=== PATIENT | female | born 1975 | race Caucasian/White ===

== ENCOUNTER 2017-07-20 19:50 | Emergency (ER) | payer MEDICAID ==
[~2017-07-20] VITALS: Ht 165.1 cm; Wt 70.0 kg
[2017-07-20 20:00] VITALS: Ht 165.1 cm; Wt 70.0 kg
--- NOTE | 2017-07-20 20:49 | ERD ---
ER Documentation Chief Complaint Date/Time DATE: 07/20/17 TIME: 20:47 Chief Complaint RLQ pain x 7 days. +nausea. -v/d. urinary symptoms HPI 42-year-old female presents here in emergency department for complaint of right lower quadrant, right pelvic pain for 7 days now. Patient described pain as sharp pain, 6/10 scale, not better or worse with anything. Patient complaining of nausea but denies any vomiting diarrhea or constipation. Patient denies any fever or chills. Patient denies being . Patient denies any hematuria or dysuria. Patient denies any flank pain. She did not take any medications for pain. ROS All systems reviewed and are negative except as per history of present illness. Medications Home Meds Active Scripts Ondansetron (Ondansetron Odt) 4 Mg Tab.rapdis, 4 MG PO Q8 Y for NAUSEA AND/OR VOMITING, #30 TAB Prov:LESLY CRAMER NP 07/20/17 Hydrocodone/Acetaminophen ([place] 5-325 Tablet) 1 Each Tablet, 1 TAB PO Q6H Y for PAIN, #20 TAB Prov:LESLY CRAMER [employer] 07/20/17 Reported Medications [none] Unknown Strength No Conflict Check 07/20/17 Allergies Allergies: Coded Allergies: No Known Allergy (Unverified , 07/20/17) PMhx/Soc Medical and Surgical Hx: pt denies Medical Hx, pt denies Surgical Hx Anesthesia Reaction: No Hx Neurological Disorder: No Hx Respiratory Disorders: No Hx Cardiac Disorders: No Hx Psychiatric Problems: No Hx Miscellaneous Medical Probl: No Hx Alcohol Use: No Hx Substance Use: No Hx Tobacco Use: No Smoking Status: Never smoker FmHx Family History: No coronary disease, No diabetes, No other Physical Exam Vitals Vital Signs Date Time Temp Pulse Resp B/P Pulse Ox O2 Delivery O2 Flow Rate FiO2 07/21/17 00:17 97.8 66 18 109/67 99 Room Air 07/20/17 20:00 98.8 86 18 111/73 97 Physical Exam GENERAL: The patient is well developed and appropriate for usual state of health, in no apparent distress. CHEST: Clear to auscultation bilaterally. There are no rales, wheezes or rhonchi. HEART: Regular rate and rhythm. No murmurs, clicks, rubs or gallops. No S3 or S4. ABDOMEN: Soft, right lower quadrant tenderness noted. Good bowel sounds. No rebound or guarding. No gross peritonitis. No gross organomegaly or masses. No Sanchez sign. BACK: No midline or flank tenderness. EXTREMITIES: Equal pulses bilaterally. There is no peripheral clubbing, cyanosis or edema. No focal swelling or erythema. Full range of motion. Grossly neurovascularly intact. NEURO: Alert and oriented. Cranial nerves 2-12 intact. Motor strength in all 4 extremities with 5/5 strength. Sensation grossly intact. Normal speech and gait. SKIN: There is no apparent rash or petechia. The skin is warm and dry. HEMATOLOGIC AND LYMPHATIC: There is no evidence of excessive bruising or lymphedema. No gross cervical, axillary, or inguinal lymphadenopathy. Result Diagram: 07/20/17205407/20/172054 Results 24 hrs Laboratory Tests Test 07/20/17 20:55 07/21/17 00:05 White Blood Count 7.210^3/ul Red Blood Count 4.6110^6/ul Hemoglobin 13.8g/dl Hematocrit 40.4% Mean Corpuscular Volume 87.6fl Mean Corpuscular Hemoglobin 29.9pg Mean Corpuscular Hemoglobin Concent 34.2g/dl Red Cell Distribution Width 12.2% Platelet Count 57617^3/UL Mean Platelet Volume 11.0fl Neutrophils % 59.0% Lymphocytes % 32.1% Monocytes % 7.0% Eosinophils % 1.1% Basophils % 0.4% Nucleated Red Blood Cells % 0.0/100WBC Neutrophils # (Manual) 410^3/ul Lymphocytes # 2.310^3/ul Monocytes # 0.510^3/ul Eosinophils # 0.110^3/ul Basophils # 0.010^3/ul Nucleated Red Blood Cells # 0.010^3/ul Urine Color STRAW Urine Clarity CLEAR Urine pH 7.0 Urine Specific [place] 1.035 Urine Ketones TRACEmg/dL Urine Nitrite NEGATIVEmg/dL Urine Bilirubin NEGATIVEmg/dL Urine Urobilinogen NEGATIVEmg/dL Urine Leukocyte Esterase NEGATIVELeu/ul Urine Hemoglobin NEGATIVEmg/dL Urine Glucose 3+mg/dL Urine Total Protein NEGATIVEmg/dl Sodium Level 139mmol/L Potassium Level 4.1mmol/L Chloride Level 99mmol/L Carbon Dioxide Level 25mmol/L Anion Gap 19 Blood Urea Nitrogen 19mg/dl Creatinine 0.44mg/dl Glucose Level 421mg/dl Calcium Level 9.9mg/dl Total Bilirubin 0.1mg/dl Direct Bilirubin 0.00mg/dl Indirect Bilirubin 0.1mg/dl Aspartate Amino Transf (AST/SGOT) 19IU/L Alanine Aminotransferase (ALT/SGPT) 37IU/L Alkaline Phosphatase 122IU/L Total Protein 7.3g/dl Albumin 4.4g/dl Globulin 2.90g/dl Albumin/Globulin Ratio 1.51 Lipase 135U/L Bedside Glucose 255mg/dL Current Medications Medications (Trade) Dose Ordered Sig/Porsha Route PRN Reason Start Time Stop Time Status Last Admin Dose Admin Sodium Chloride (NS) 1,000 ml @ 1,000 mls/hr Q1H ONCE IV 07/20/17 22:30 07/20/17 23:29 DC 07/20/17 23:02 Insulin Aspart (Novolog Insulin Pen) 10 unit ONCE ONCE SC 07/20/17 22:30 07/20/17 22:42 DC 07/20/17 23:13 IV fluids and insulin was given here in emergency department to control blood sugar, does not show any symptoms of diabetic ketoacidosis. PROCEDURE: CT abdomen and pelvis without contrast. CLINICAL INDICATION: Abdominal pain TECHNIQUE: CT scan of the abdomen and pelvis without contrast was performed. Sagittal and coronal reformatted images were obtained from the axial source images. CTDI = 9.61 mGy; DLP = 514.95 mGy-cm COMPARISON: Pelvic ultrasound 07/20/2017 FINDINGS: Visualized lower thorax: The lung bases are clear. There is no evidence for pleural effusion. Partially visualized breast implants are noted Liver, gallbladder, pancreas and spleen: The liver is normal and size, contour and attenuation. There is no evidence for a liver mass or ductal dilatation. The gallbladder is unremarkable. No common bile duct abnormality is demonstrated. The pancreas is unremarkable. The spleen is normal in size. Adrenal glands and genitourinary system: The adrenal glands are normal bilaterally. The kidneys are normal and size, contour and attenuation with no evidence for masses, calculi or hydronephrosis. The ureters are unremarkable. No urinary bladder abnormality is demonstrated. The uterus and adnexa are unremarkable. There is no evidence of free fluid in the cul-de-sac. Gastrointestinal system: The stomach is normal in caliber with no abnormality of significance. The small bowel is normal in caliber with no ileus, obstruction or wall thickening. The appendix and surrounding fat are within the limits of normal. The colon shows no evidence for wall thickening or acute abnormality. There is no evidence for colitis or diverticulitis. Peritoneum, retroperitoneum, lymph nodes and vessels: The abdominal aorta is normal in caliber. There is no evidence for atherosclerotic calcification. The inferior vena cava is unremarkable. There is no evidence for adenopathy or mass. There is no ascites. No pneumoperitoneum is visualized Osseous structures and musculoskeletal findings: There is no fracture, lytic or blastic lesion. No muscular abnormality or soft tissue pathology is present. RPTAT:HJJR IMPRESSION: Unremarkable CT scan of the abdomen and pelvis without contrast without findings to explain the patient's provided history. Physician Britt Date Time Electronically viewed and signed by Harjinder Rios Physician on 07/20/2017 22:29 JR/ CC: LESLY CRAMER NP AMENDMENT: 07/20/2017 10:30:11 PM Cleveland Molina M.D Endometrium: 2.4 mm. PROCEDURE: US Pelvis CLINICAL INDICATION: Pelvic pain. TECHNIQUE: Gomez scale and color Doppler imaging of the pelvis was performed. COMPARISON: CT dated 07/20/2017. FINDINGS: Uterus: 6.2 x 3.0 x 4.4 cm. Homogeneous in echogenicity with no mass lesion. Anteverted and normal in position. Endometrium: mm. Right ovary: Not visualized. Left ovary: 2.2 x 1.0 x 1.6 cm. Normal in echogenicity. Flow is present. Adnexa: No masses. Free fluid: None. IMPRESSION: 1. Unremarkable ultrasound of the pelvis. 2. Nonvisualization of the right ovary. RPTAT: HLBP .Cleveland Molina MD, MD Date Time Electronically viewed and signed by .Cleveland Molina MD, MD on 07/20/2017 22:30 .P/ CC: LESLY CRAMER NP Procedures/MDM Medical Decision Making: Patient's symptoms of abdominal pain nonspecific at this time, may be viral in origin. Patient has elevated blood sugar but has no symptoms of diabetic ketoacidosis. There is low suspicion for abdominal emergencies at this time. Patients abdominal exam is normal at this time. Patients radiology exams does not show any abdominal emergencies at this time. Leukocytosis, no bandemia. The right ovary was not seen but is low suspicion for ovarian torsion. Patient's pain is controlled There is low suspicion for appendicitis, cholecystitis, abdominal aortic aneurysms or peritonitis at this time. There is low suspicion for sepsis. Patient appears well and is hemodynamically stable. Patient's diabetic symptoms have stabilized here in the emergency department and appear appropriate for outpatient management. No evidence at this time of diabetic ketoacidosis, hyperosmolar syndrome, or severe systemic infection. Disposition: Home. Condition: Stable Prescription [place], ibuprofen Instructions: Patient is advised to take medications as prescribed. Patient is advised to rest, increase fluid intake and do brat diet for next 1-2 days and progress as tolerated. Patient is advised that if symptoms are worse, severe abdominal pain, uncontrolled vomiting, high fever, severe flank pain, worst signs and symptoms, to return to the emergency department immediately. Otherwise, patient can follow up with primary care doctor in 5-7 days. Departure Diagnosis: Primary Impression: Abdominal pain Abdominal location: right lower quadrant Qualified Code: R10.31 - Right lower quadrant abdominal pain Additional Impression: Hyperglycemia Condition: Stable Patient Instructions: Abdominal Pain, Hyperglycemia (High Blood Sugar) Additional Instructions: Patient is advised to take medications as prescribed. Patient is advised to rest , increase fluid intake and do brat diet for next 1-2 days and progress as tolerated. Patient is advised that if symptoms are worse, severe abdominal pain , uncontrolled vomiting, high fever, severe flank pain, worst signs and symptoms , to return to the emergency department immediately. Otherwise, patient can follow up with primary care doctor in 5-7 days. LESLY CRAMER NP Jul 20, 2017 20:49
[2017-07-20 21:47] LABS: BASOPHILS % 0.4 % (0.0-2.0); EOSINOPHILS # 0.1 10^3/ul (0.0-0.5); EOSINOPHILS % 1.1 % (0.0-7.0); HEMATOCRIT 40.4 % (37.0-47.0); HEMOGLOBIN 13.8 g/dl (12.0-16.0); LYMPHOCYTES # 2.3 10^3/ul (0.8-2.9); LYMPHOCYTES % 32.1 % (15.0-51.0); MEAN CORPUSCULAR HEMOGLOBIN 29.9 pg (29.0-33.0); MEAN CORPUSCULAR HGB CONC 34.2 g/dl (32.0-37.0); MEAN CORPUSCULAR VOLUME 87.6 fl (82.0-101.0); MONOCYTE # 0.5 10^3/ul (0.3-0.9); PLATELET COUNT 243 10^3/UL (140-415); RED BLOOD COUNT 4.61 10^6/ul (4.20-5.40); RED CELL DISTRIBUTION WIDTH 12.2 % (11.5-14.5); WHITE BLOOD COUNT 7.2 10^3/ul (4.8-10.8)
[2017-07-20 21:53] LABS: ADD UMIC NO; UR ASCORBIC ACID NEGATIVE (NEGATIVE); UR BILIRUBIN (Dip) NEGATIVE (NEGATIVE); UR BLOOD (Dip) NEGATIVE (NEGATIVE); UR CLARITY CLEAR (CLEAR); UR COLOR STRAW (YELLOW); UR GLUCOSE (Dip) 3+ mg/dL (NEGATIVE); UR KETONES (Dip) TRACE mg/dL (NEGATIVE); UR LEUKOCYTE ESTERASE (Dip) NEGATIVE Leu/ul (NEGATIVE); UR NITRITE (Dip) NEGATIVE (NEGATIVE); UR SPECIFIC GRAVITY (Dip) 1.035 (1.003-1.030); UR TOTAL PROTEIN (Dip) NEGATIVE (NEGATIVE); UR UROBILINOGEN (Dip) NEGATIVE (NEGATIVE)
[2017-07-20 22:27] LABS: ALBUMIN 4.4 g/dl (3.3-4.9); ALBUMIN/GLOBULIN RATIO 1.51; BILIRUBIN,INDIRECT 0.1 mg/dl (0-1.1); BILIRUBIN,TOTAL 0.1 mg/dl (0.2-1.3); CALCIUM 9.9 mg/dl (8.4-10.2); CREATININE 0.44 mg/dl (0.44-1.00); POTASSIUM 4.1 mmol/L (3.5-5.1); TOTAL PROTEIN 7.3 g/dl (6.1-8.1)
--- NOTE | 2017-07-20 22:29 | RADRPT ---
AMENDMENT: 07/20/2017 10:30:11 PM Cleveland Molina M.D Endometrium: 2.4 mm. PROCEDURE: US Pelvis CLINICAL INDICATION: Pelvic pain. TECHNIQUE: Gomez scale and color Doppler imaging of the pelvis was performed. COMPARISON: CT dated 07/20/2017. FINDINGS: Uterus: 6.2 x 3.0 x 4.4 cm. Homogeneous in echogenicity with no mass lesion. Anteverted and normal in position. Endometrium: mm. Right ovary: Not visualized. Left ovary: 2.2 x 1.0 x 1.6 cm. Normal in echogenicity. Flow is present. Adnexa: No masses. Free fluid: None. IMPRESSION: 1. Unremarkable ultrasound of the pelvis. 2. Nonvisualization of the right ovary. RPTAT: HLBP .Cleveland Molina MD, Date Time Electronically viewed and signed by .Cleveland Molina MD, MD on 07/20/2017 22:30 .P/
--- NOTE | 2017-07-20 22:29 | RADRPT ---
PROCEDURE: CT abdomen and pelvis without contrast. CLINICAL INDICATION: Abdominal pain TECHNIQUE: CT scan of the abdomen and pelvis without contrast was performed. Sagittal and coronal reformatted images were obtained from the axial source images. CTDI = 9.61 mGy; DLP = 514.95 mGy-cm COMPARISON: Pelvic ultrasound 07/20/2017 FINDINGS: Visualized lower thorax: The lung bases are clear. There is no evidence for pleural effusion. Part ially visualized breast implants are noted Liver, gallbladder, pancreas and spleen: The liver is normal and size, contour and attenuation. Th ere is no evidence for a liver mass or ductal dilatation. The gallbladder is unremarkable. No comm on bile duct abnormality is demonstrated. The pancreas is unremarkable. The spleen is normal in si ze. Adrenal glands and genitourinary system: The adrenal glands are normal bilaterally. The kidneys are normal and size, contour and attenuation with no evidence for masses, calculi or hydronephrosis. T he ureters are unremarkable. No urinary bladder abnormality is demonstrated. The uterus and adnexa are unremarkable. There is no evidence of free fluid in the cul-de-sac. Gastrointestinal system: The stomach is normal in caliber with no abnormality of significance. The small bowel is normal in caliber with no ileus, obstruction or wall thickening. The appendix and s urrounding fat are within the limits of normal. The colon shows no evidence for wall thickening or acute abnormality. There is no evidence for colitis or diverticulitis. Peritoneum, retroperitoneum, lymph nodes and vessels: The abdominal aorta is normal in caliber. The re is no evidence for atherosclerotic calcification. The inferior vena cava is unremarkable. There is no evidence for adenopathy or mass. There is no ascites. No pneumoperitoneum is visualized Osseous structures and musculoskeletal findings: There is no fracture, lytic or blastic lesion. No muscular abnormality or soft tissue pathology is present. RPTAT:HJJR IMPRESSION: Unremarkable CT scan of the abdomen and pelvis without contrast without findings to explain the robert ent's provided history. Physician Britt Date Time Electronically viewed and signed by Physician Britt on 07/20/2017 22:29 JR/
[2017-07-20] MEDS ORDERED: INSULIN ASPART [NOVOLOG] 3 ML PEN SC ONE (22:30)
[2017-07-20] MEDS ORDERED: SOD CHLORIDE 0.9% 1,000 ML IV ONE (22:30)
[2017-07-20] MEDS ORDERED: HYDR-906 PO (22:46)
[2017-07-20] MEDS ORDERED: ONDA4TAB14 PO (22:46)
[2017-07-21 00:17] VITALS: BP 109/67; PULSE 66; RESP 18; TEMP 97.8
== END 2017-07-21 00:19 | disposition home or self-care (01) ==
LOC: FTE 19:50
DX: R10.31 Right lower quadrant pain (principal); R73.9 Hyperglycemia, unspecified; R11.0 Nausea; R10.2 Pelvic and perineal pain
CPT/HCPCS: 36415; 74176; 76830; 76856; 80053; 81003; 82962; 83690; 85025; 96372; J1815; J7030; Z7502

== ENCOUNTER 2018-09-05 15:09 | Emergency (ER) | END 2018-09-05 16:50 | disposition home or self-care (01) ==

== ENCOUNTER 2019-08-23 11:23 | Emergency (ER) | payer OTHER ==
[~2019-08-23] VITALS: Ht 162.6 cm; Wt 69.9 kg
[~2019-08-23 11:23] MED LIST: CEPH-443 PO; HYDR-4011 PO; IBUP-1542 PO; ONDA4TAB14 PO
[2019-08-23 11:27] VITALS: Ht 162.6 cm; Wt 69.9 kg
[2019-08-23] MEDS ORDERED: ALPRAZOLAM 0.25 MG TAB PO ONE (14:30)
[2019-08-23 15:44] VITALS: BP 116/71; PULSE 76; RESP 18
== END 2019-08-23 15:46 | disposition home or self-care (01) ==
LOC: FTE 11:23
DX: R20.2 Paresthesia of skin (principal); E11.9 Type 2 diabetes mellitus without complications
CPT/HCPCS: 80048; 81025; 85025; 93005; Z7502; Z7610